=== PATIENT | male | born 1965 | race Caucasian/White ===

== ENCOUNTER 2023-04-29 03:07 | Emergency (ER) | payer BC, OTHER ==
[2023-04-29 03:19] VITALS: BP_SYST 111
[2023-04-29] MEDS ORDERED: predniSONE 20 MG TABLET PO ONE (04:00)
[2023-04-29] MEDS ORDERED: ACETAMINOPHEN 500 MG TABLET PO ONE (04:00)
[2023-04-29] MEDS ORDERED: KETOROLAC TROMETHAMINE 30 MG VIAL IM ONE (04:00)
[2023-04-29] MEDS ORDERED: GABAPENTIN 300 MG CAPSULE PO ONE (04:00)
[2023-04-29] MEDS ORDERED: PERC10 PO (04:09)
[2023-04-29] MEDS ORDERED: NEU300 PO (04:09)
[2023-04-29] MEDS ORDERED: PRED20TA PO (04:09)
[2023-04-29] MEDS ORDERED: CYCL10TA24 PO (04:09)
[2023-04-29] MEDS ORDERED: IBUP-1970 PO (04:09)
[2023-04-29 04:25] VITALS: BP_SYST 124
== END 2023-04-29 04:25 | disposition home or self-care (01) ==
LOC: SED 03:07
DX: M54.31 Sciatica, right side (principal); M54.50 Low back pain, unspecified; R20.2 Paresthesia of skin; Z79.899 Other long term (current) drug therapy
CPT/HCPCS: 99284; 96372; J7512; J1885

== ENCOUNTER 2023-10-14 18:22 | Emergency (ER) | payer OTHER ==
[~2023-10-14] VITALS: Ht 172.7 cm; Wt 86.2 kg
[~2023-10-14 18:22] MED LIST: CYCL10TA24 PO; IBUP-1970 PO; NEU300 PO; PERC10 PO; PRED20TA PO
[2023-10-14 18:29] VITALS: BP_SYST 147; PULSE 86; RESP 19; TEMP 97.3; O2SAT 100
[2023-10-14] MEDS ORDERED: KETOROLAC TROMETHAMINE 60 MG/2 ML VIAL IM ONE (18:45)
[2023-10-14] MEDS ORDERED: DIAZEPAM 5 MG TABLET (VALIUM) PO ONE (18:45)
[2023-10-14] MEDS ORDERED: DICL75TA5 PO (20:38)
[2023-10-14] MEDS ORDERED: DICL20GE TP (20:38)
[2023-10-14 20:50] VITALS: BP_SYST 135; PULSE 75; RESP 18; TEMP 98.4; O2SAT 98
== END 2023-10-14 20:45 | disposition home or self-care (01) ==
LOC: SED 18:22
DX: M75.31 Calcific tendinitis of right shoulder (principal); Z79.899 Other long term (current) drug therapy
CPT/HCPCS: 99283; 73030; 96372; J1885

== ENCOUNTER 2023-10-16 00:13 | Emergency (ER) | payer OTHER ==
[~2023-10-16] VITALS: Ht 175.3 cm; Wt 77.1 kg
[~2023-10-16 00:13] MED LIST changes: +DICL20GE TP; +DICL75TA5 PO
[2023-10-16 00:34] VITALS: BP_SYST 133; PULSE 83; RESP 16; TEMP 97.9; O2SAT 98
[2023-10-16] MEDS ORDERED: LIDOCAINE 2%, 20 ML MDV INJ ONE (02:30)
[2023-10-16] MEDS ORDERED: methylPREDNISolone SOD SUCC/PF 62.5 MG/ML VIAL IVP ONE ×2 (02:30→03:00)
[2023-10-16] MEDS ORDERED: methylPREDNISolone SOD SUCC/PF 62.5 MG/ML VIAL ONE (02:46)
[2023-10-16 02:50] VITALS: BP_SYST 133; PULSE 83; RESP 16; TEMP 97.9; O2SAT 98
[2023-10-16] MEDS ORDERED: NAPR-690 PO (02:51)
== END 2023-10-16 02:50 | disposition home or self-care (01) ==
LOC: SED 00:13
DX: M75.31 Calcific tendinitis of right shoulder (principal); Z79.899 Other long term (current) drug therapy
CPT/HCPCS: 99283; 96374; J2001; J2930

== ENCOUNTER 2024-08-28 13:27 | Emergency (ER) | payer OTHER ==
[~2024-08-28] VITALS: Ht 175.3 cm; Wt 83.9 kg
[~2024-08-28 13:27] MED LIST changes: +NAPR-690 PO
[2024-08-28 13:54] VITALS: BP_SYST 125; PULSE 88; RESP 18; TEMP 97.7; O2SAT 96
[2024-08-28 14:12] LABS: ALANINE AMINOTRANSFERASE 25 U/L (12-78); ALBUMIN 3.9 g/dL (3.4-4.8); ANION GAP 5 (5-15); ASPARTATE AMINOTRANSFERASE 22 U/L (10-37); CALCIUM 9.5 mg/dL (8.4-11.0); CARBON DIOXIDE 31 mmol/L (23-29); CHLORIDE 102 mmol/L (98-107); CREATININE 1.01 mg/dL (0.55-1.30); GFR AFRICAN AMERICAN 98 mL/min (>90); GLUCOSE 102 mg/dL (74-106); INR 1.5 (0.80-1.20); PROTHROMBIN TIME 15.8 SECS (9.5-12.5); SODIUM SERUM 138 mmol/L (136-145); TOTAL BILIRUBIN 0.9 mg/dL (0.0-1.0); TOTAL PROTEIN, SERUM 7.7 g/dL (6.4-8.3); UREA NITROGEN, BLOOD 12 mg/dL (8-21)
[2024-08-28 14:14] LABS: BILIRUBIN,DIRECT 0.2 mg/dL (0.0-0.3)
[2024-08-28 14:15] LABS: GFR NON AFRICAN-AMERICAN 81 mL/min (>90)
[2024-08-28 14:41] LABS: HEMATOCRIT 45.2 % (36-54); HEMOGLOBIN 15.6 g/dL (14.0-18.0); MEAN CORPUSCULAR HEMOGLOBIN 30 pg (27-31); MEAN CORPUSCULAR VOLUME 86 fL (79.0-98.0); RED BLOOD CELL COUNT(AUTO) 5.23 MIL/uL (4.2-6.2); WHITE BLOOD COUNT (AUTO) 7.5 K/uL (4.8-10.8)
[2024-08-28 14:42] LABS: BASOPHILS % (AUTO) 0.6 % (0.0-2.0); EOSINOPHILS # (AUTO) 0.1 K/uL (0.0-0.4); EOSINOPHILS % (AUTO) 1.8 % (0.0-4.0); LYMPHOCYTES # (AUTO) 2.2 K/uL (1.0-5.5); LYMPHOCYTES % (AUTO) 29.5 % (20.5-51.5); MEAN CORPUSCULAR HGB CONC 35 % (32-36); MONOCYTES % (AUTO) 13.5 % (1.7-9.3); NEUTROPHILS # (AUTO) 4.1 K/uL (1.8-7.7); NEUTROPHILS % (AUTO) 54.6 % (40.0-70.0); PLATELET COUNT (AUTO) 278 K/uL (130-430); RED CELL DISTRIBUTION WIDTH 13.2 % (9.0-15.0)
[2024-08-28 16:08] VITALS: BP_SYST 124; PULSE 75; RESP 17; TEMP 98.2; O2SAT 95
== END 2024-08-28 16:08 | disposition home or self-care (01) ==
LOC: SED 13:27
DX: R55 Syncope and collapse (principal); F10.10 Alcohol abuse, uncomplicated; Z88.1 Allergy status to other antibiotic agents; Z79.52 Long term (current) use of systemic steroids; Z79.899 Other long term (current) drug therapy; Y90.0 Blood alcohol level of less than 20 mg/100 ml
CPT/HCPCS: 99285; 70450; 71045; 80076; 80048; 85025; 85610; 85730; 84484; 36415; 93005; 83605; G0482